=== PATIENT | female | born 1965 | race African-American/Black ===

== ENCOUNTER 2020-07-11 08:57 | Emergency (ER) | payer OTHER ==
--- OUTSIDE RECORDS SUMMARY | 2020-07-11 09:08 | XMS REPORT | Continuity of Care Document ---
:1965 Author Organization [facility] t Address [address] [place] [address] Care Team Providers Name Role Phone Bijal Lorenz Attending Clinician Nurse, Fausto Llamas I Attending Clinician Unavailable Problems This patient has no known problems. Allergies, Adverse Reactions, Alerts This patient has no known allergies or adverse reactions. Medications This patient has no known medications. Procedures This patient has no known procedures. Encounters Start End Encounter Admission Attending Care Care Encounter Source Date/Time Date/Time Type Type Clinicians Facility Department ID 2020-03-02 2020-03-02 Emergency Binta RUST [id number] 13:06:11 16:36:00 Anurag Appiah [place] [id number] [place] [id number] [place] [id number] 2020-03-02 2020-03-02 Telephone Nurse, [facility] [id number] 00:00:00 00:00:00 Fausto Pob I [facility] [id number] [place] [id number] [facility] [id number] [place] [address] Results This patient has no known results.
--- NOTE | 2020-07-11 09:54 | RAD REPORT ---
EXAM DESCRIPTION: CT - Head Brain Wo Cont - 07/11/2020 9:46 am CLINICAL HISTORY: HEADACHE COMPARISON: No comparisons TECHNIQUE: Axial 5 mm thick images of the head were obtained without IV contrast. All CT scans are performed using dose optimization technique as appropriate and may include automated exposure control or mA/KV adjustment according to patient size. FINDINGS: No intracranial hemorrhage, mass, edema or shift of mid-line structures. No acute infarcti on changes seen. No abnormal extra-axial fluid collections. Ventricles are normal. Physiologic basal ganglia and falx calcifications are present. Mastoid air cells and visualized portions of the paranasal sinuses are clear. No acute bony findings. IMPRESSION: Negative non-contrast CT head examination.
[2020-07-11 10:10] LABS: Protime INR 1.27
[2020-07-11 10:12] LABS: Absolute Lymphocytes (CBC) 1.9 K/uL (0.7-4.9); Basophils % 0.9 % (0-1.3); Hematocrit 39.1 % (36.0-45.0); Lymphocytes % 14.1 % (15.3-44.8); MPV 8.7 fL (7.6-11.3); RBC Red Blood Cell Count 4.16 M/uL (3.86-4.86)
[2020-07-11] MEDS ORDERED: METOCLOPRAMIDE 10 MG/2mL INJ ONE (10:20)
[2020-07-11] MEDS ORDERED: DIPHENHYDRAMINE 50 MG/ML VIAL ONE (10:21)
[2020-07-11] MEDS ORDERED: NA CHLORIDE 0.9% 1,000 ML ONE (10:21)
[2020-07-11] MEDS ORDERED: ACETAMINOPHEN 325 MG TABLET ONE (10:21)
[2020-07-11] MEDS ORDERED: dexAMETHasone 10 MG/ML VIAL ONE (10:21)
[2020-07-11 10:26] LABS: ALT/SGPT 19 U/L (12-78); AST/SGOT 11 U/L (15-37); Albumin 3.4 g/dL (3.4-5.0); Alkaline Phosphatase 103 U/L (45-117); BUN Blood Urea Nitrogen 8 mg/dL (7-18); Bicarbonate 27 mmol/L (21-32); Bilirubin Direct 0.3 mg/dL (0-0.2); Bilirubin Total 1.4 mg/dL (0.2-1.0); Glucose Level 219 mg/dL (74-106); NT PRO-BNP 30 pg/mL (<125); Potassium 3.9 mmol/L (3.5-5.1); Protein, Total 8.6 g/dL (6.4-8.2); Sodium Level 136 mmol/L (136-145); Troponin (Emerg Dept Use Only) < 0.02 ng/mL (0.0-0.045)
--- NOTE | 2020-07-11 10:32 | RAD REPORT ---
EXAM DESCRIPTION: RAD - Chest Single View - 07/11/2020 10:04 am CLINICAL HISTORY: CHEST PAIN COMPARISON: Two view chest April 2015 TECHNIQUE: AP portable chest image was obtained 07/11/2020 10:04 am . FINDINGS: Lung volumes are low. No focal lung parenchymal process. Heart and vasculature are normal. No measurable pleural effusion and no pneumothorax. No acute bony abnormality seen. No acute aortic findings suspected. IMPRESSION: No acute cardiopulmonary process. No significant change comparison.
[2020-07-11] MEDS ORDERED: KETOROLAC 30 MG/ML INJ ONE (11:20)
[2020-07-11 12:05] LABS: Urine Blood NEGATIVE (NEG); Urine Glucose TRACE (NEG); Urine Protein NEGATIVE (NEG); Urine Specific Gravity 1.015 (1.005-1.030)
--- NOTE | 2020-07-11 12:16 | ER ---
Nurse's Notes [facility] Name: Olga Norton Age: 55 yrs Sex: Female : 1965 Arrival Date: 07/11/2020 Time: 08:59 Bed 20 Private MD: Diagnosis: Migraine;Viral infection, unspecified Presentation: 07/11 09:11 Chief complaint: Patient states: chest pain that started Sat. with SOB and weakness, em denies N/V, cough or fever, also reports TRAVIS with chills that started on Sun. Coronavirus screen: Client denies travel out of the [place] in the last 14 days. chills, fatigue, headache, shortness of breath, Client presents with at least one sign or symptom that may indicate coronavirus-19. Standard/surgical mask placed on the client. Provider contacted for isolation considerations. Ebola Screen: Patient negative for fever greater than or equal to 101.5 degrees Fahrenheit, and additional compatible Ebola Virus Disease symptoms Patient denies exposure to infectious person. Patient denies travel to an Ebola-affected area in the 21 days before illness onset. No symptoms or risks identified at this time. Initial Sepsis Screen: Does the patient meet any 2 criteria? HR > 90 bpm. No. Patient's initial sepsis screen is negative. Does the patient have a suspected source of infection? No. Patient's initial sepsis screen is negative. Risk Assessment: Do you want to hurt yourself or someone else? Patient reports no desire to harm self or others. Onset of symptoms was July 07, 2020. 09:11 Method Of Arrival: Ambulatory em 09:11 Acuity: CHIDI 3 em Historical: - Allergies: 09:13 Bactrim; em - Home Meds: 09:13 None [Active]; em - PMHx: 09:13 Asthma; prediabetic; em - PSHx: 09:13 Cholecystectomy; em - Immunization history:: Adult Immunizations not up to date. - Social history:: Smoking status: Patient denies any tobacco usage or history of. Screenin:15 Abuse screen: Denies threats or abuse. Nutritional screening: No deficits noted. em Tuberculosis screening: No symptoms or risk factors identified. Fall Risk None identified. Assessment: 09:11 General: Appears in no apparent distress. uncomfortable, ill, Behavior is calm, em cooperative, appropriate for age, Reports chills for 2-3 days. Pain: Complains of pain in headache and chest Pain radiates to chin Pain began 2-3 days ago. Neuro: Level of Consciousness is awake, alert, obeys commands, Oriented to person, place, time, situation, Appropriate for age Reports headache weakness. Cardiovascular: Reports chest pain, shortness of breath, Capillary refill < 3 seconds Patient's skin is warm and dry. Respiratory: Airway is patent Respiratory effort is even, unlabored, Respiratory pattern is regular, symmetrical. GI: Patient currently denies nausea, vomiting. Derm: Skin is intact, is healthy with good turgor, Skin is pink, warm \T\ dry. Musculoskeletal: Capillary refill < 3 seconds, Range of motion: intact in all extremities. Vital Signs: 09:11 BP 129 / 71; Pulse 113; Resp 20; Temp 99.9(O); Pulse Ox 100% on R/A; Weight 81.65 kg; em Height 5 ft. 5 in. (165.10 cm); Pain 10/10; 10:00 BP 120 / 60; Pulse 103; Resp 18; Pulse Ox 99% on R/A; em 09:11 Body Mass Index 29.95 (81.65 kg, 165.10 cm) em ED Course: 08:59 Patient arrived in ED. ds1 09:08 Osbaldo Rivera PA is PHCP. jr8 09:08 Valente Sommers MD is Attending Physician. jr8 09:10 Elia Hendrickson, RN is Primary Nurse. em 09:13 Triage completed. em 09:13 Arm band placed on. em 09:15 Patient has correct armband on for positive identification. Placed in gown. Bed in low em position. Call light in reach. Side rails up X2. Adult w/ patient. vehicle monitor technician on. Pulse ox on. NIBP on. 09:15 Patient maintains SpO2 saturation greater than 95% on room air. em 09:46 CT Head Brain wo Cont In Process Unspecified. EDMS 09:57 Inserted saline lock: 20 gauge in right antecubital area, using aseptic technique. ss Blood collected. 10:04 XRAY Chest (1 view) In Process Unspecified. EDMS 12:26 No provider procedures requiring assistance completed. IV discontinued, intact, ss bleeding controlled, No redness/swelling at site. Pressure dressing applied. Administered Medications: 10:15 Drug: Tylenol 650 mg Route: PO; ss 12:27 Follow up: Response: No adverse reaction; Marked relief of symptoms ss 10:15 Drug: NS 0.9% 1000 ml Route: IV; Rate: 1000 ml; Site: right antecubital; ss 11:27 Follow up: IV Status: Completed infusion; IV Intake: 1000ml em 10:17 Drug: Benadryl 25 mg Route: IVP; Site: right antecubital; ss 12:27 Follow up: Response: No adverse reaction ss 10:20 Drug: Decadron - Dexamethasone 10 mg Route: IVP; Site: right antecubital; ss 12:27 Follow up: Response: No adverse reaction; Marked relief of symptoms ss 10:28 Drug: Reglan 10 mg Route: IVP; Site: right antecubital; ss 12:28 Follow up: Response: No adverse reaction ss 11:12 Drug: Ketorolac 30 mg Route: IVP; Site: right antecubital; em 11:24 Follow up: Response: No adverse reaction; Marked relief of symptoms; Pain is decreased em Intake: 11:27 IV: 1000ml; Total: 1000ml. em Outcome: 12:16 Discharge ordered by MD. pike 12:26 Discharged to home ambulatory. ss 12:26 Condition: good 12:26 Discharge instructions given to patient, family, Instructed on discharge instructions, follow up and referral plans. medication usage, Demonstrated understanding of instructions, follow-up care, medications, Prescriptions given X 2. 12:28 Patient left the ED. ss Addendum: 07/13/2020 14:32 Addendum: COVID-19 Result: Negative result given to RN to notify pt. Attempted to d m5 contact pt regarding negative COVID-19 swab results. Other: Attempted to contact patient twice to report result but there was no answer and the mailbox was full. Signatures: Dispatcher [facility] Cami Castro RN RN [email or web address] Elia Hendrickson RN RN em Sanford, Demi ds1 Hoa Albrecht RN RN ss Roszak, Josh, PA PA jr8
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
[2020-07-11 12:39] VITALS: TEMP 99.9
[2020-07-11 12:40] VITALS: BP 120/60; O2SAT 99
--- NOTE | 2020-07-12 07:07 | EKG ---
Test Date: 2020-07-11 Test Time: 09:25:25 Sports Marketer: [place] MEASUREMENT RESULTS: Intervals: Rate: 106 NM: 124 QRSD: 78 QT: 342 QTc: 454 [place]: P: 68 NM: 124 QRS: 40 T: 33 INTERPRETIVE STATEMENTS: Sinus tachycardia Otherwise normal ECG Compared to ECG 03/27/2011 05:27:03 Sinus bradycardia no longer present Left ventricular hypertrophy no longer present Electronically Signed On 07-12-20 07:04:02 CDT by Óscar Isbell
== END 2020-07-11 12:28 | disposition home or self-care (01) ==
LOC: ER 08:57
DX: B34.9 Viral infection, unspecified (principal); Z20.828 Contact with and (suspected) exposure to other viral communicable diseases; J45.909 Unspecified asthma, uncomplicated; Z88.1 Allergy status to other antibiotic agents
CPT/HCPCS: 96361; 93005; 85025; 80048; 36415; 83735; 85610; 80076; 81003; 84484; 83880; 87804 ×2; 70450; 71045; 96375; 96374; 99285; U0002; J2765; J1200; J1100; J7030

== ENCOUNTER 2024-06-13 13:53 | Emergency (ER) | payer OTHER ==
--- OUTSIDE RECORDS SUMMARY | 2024-06-13 13:57 | XMS REPORT | Clinical Summary ---
Author Name Unknown Organization [facility] Address [address] [place] [address] Care Team Providers Care Statistical Modeler Name Role Phone Tulio Conrad MD Unavailable [phone] Alfonso Redding APRN Primary Care Provider + [phone] Allergies Active Allergy Reactions Criticality Noted Date Comments Sulfamethoxazole-Trim ethoprim High 04/10/2023 Per patient, it made her really sick Tree Nuts Shortness Of Breath High 04/29/2018 Medications Medication Sig Dispensed Refills Start Date End Date Status Farxiga 10 mg tab Take 10 mg by mouth daily. Active atorvastatin (LIPITOR) 40 mg tablet Take 1 tablet (40 mg) by mouth at bedtime. 04/07/2023 Active metFORMIN (GLUCOPHAGE-XR) 500 mg 24 hr tablet Take 1 tablet (500 mg) by mouth 2 (two) times a day with meals. 04/07/2023 Active montelukast (SINGULAIR) 10 mg tablet Take 1 tablet (10 mg) by mouth as needed. Active pantoprazole (PROTONIX) 40 mg EC tablet Take 1 tablet (40 mg) by mouth daily as needed. 01/02/2023 Active OneTouch Verio test strips strp 1 strip twice daily. 12/16/2022 Act pramod albuterol (VENTOLIN HFA,PROAIR HFA) 90 mcg/puff inhaler Inhale 2 puffs by mouth as needed. 07/08/2022 Active albuterol (ACCUNEB) 0.63 mg/3 mL nebulizer solution Inhale 3 mL (0.63 mg) by nebulization 3 (three) times a day as needed. 08/04/2022 Active Active Problems No known active problems Surgical History Surgery Date Site/Laterality Comments CHOLECYSTECTOMY I dont remember. Possibly 2004 SECTION, CLASSIC 07/27/1990 Medical History Medical History Date Comments Hyperlipidemia Migraine I have them occa sionally Asthma 20 years ago Was told I have reactive airways disease, treating under asthma. Gastric reflux I was recently given pantoprazole 40mg in November for hoarseness. I am no longer taking. Type 2 diabetes mellitus 10 years ago Social History Tobacco Use Types Packs/Day Years Used Date Smoking Tobacco: Never Smokeless Tobacco: Never Tobacco Cessation:Counseling Given: Not Answered Alcohol Use Standard Drinks/Week Comments Never 0 (1 standard drink = 0.6 oz pur e alcohol) Sex and Gender Information Value Date Recorded Sex Assigned at Not on file Gender Identity Not on file Sexual Orientation Not on file Job Start Date Occupation Industry Not on file Not on file Not on file Obstetrics History Para Term AB IAB SAB Ectopic Multiple Livin g Live Births 3 1 1 Date Outcome GA Total Labor Labor/2nd/3rd Weight Sex Type Anes PTL Cleopatra A1 A5 Name Clin Para Comments Menarche: 11 Parity: 25 OBC: Used for approximately 10 years Hormonal Therapy: Used IUD for approximately 5 years Last Pap: 04/02/2023 (OS) Abnormal Pap: Never Last Sonali: 03/26/2023 (OS) Breast Bx: Never Last Colon: Approximately 15 years ago (OS) - Normal Plan of Treatment Health Maintenance Due Date Last Done Comments COVID-19 Vaccine (2022-2 4 season) 2024 Influenza Vaccine (#1) 2024 Pneumococcal Vaccine: Pediat rics (0 to 5 Years) and At-Risk Patients (6 to 64 Years) Aged Out No longer eligi ble based on patient's age to complete this topic Care Teams Statistical Modeler Relationship Specialty Start Date End Date Tulio Conrad MD [address] [place] [id number] [email or web address] PCP - External Primary Care Provider Internal Medicine 04/03/23 Alfonso Redding APRN [address] [place] [id number] [email or web address] PCP - General Cancer Prevention 04/06/23
[2024-06-13] MEDS ORDERED: ACETAMINOPHEN 500 MG TAB ONE (14:25)
[2024-06-13] MEDS ORDERED: MORPHINE 2 MG/ML SYR ONE (14:25)
[2024-06-13] MEDS ORDERED: NA CHLORIDE 0.9% 1,000 ML ONE (14:26)
[2024-06-13 15:08] LABS: Absolute Lymphocytes (CBC) 1.4 K/uL (0.7-4.9); Absolute Monocytes 1.1 K/uL (0.1-1.3); Absolute Neutrophil 7.1 K/uL (1.8-8.0); Basophils % 0.5 % (0-1.3); Eosinophils % 0.1 % (0-4.4); Hematocrit 33.3 % (36.0-45.0); Hemoglobin 11.3 g/dL (12.0-15.0); Lymphocytes % 14.8 % (15.3-44.8); MCH 32.7 pg (27.0-35.0); MCV 96.1 fL (80-100); MPV 7.8 fL (7.6-11.3); Monocytes % 11.7 % (3.3-12.3); Neutrophils % 72.9 % (41.7-73.7); Platelets 348 thou/uL (152-406); RBC Red Blood Cell Count 3.46 M/uL (3.86-4.86)
[2024-06-13 15:17] LABS: PT Prothrombin Time 13.7 SECONDS (9.4-12.5); Protime INR 1.23
[2024-06-13 15:20] LABS: Albumin 3.3 g/dL (3.4-5.0); Albumin/Globulin Ratio 0.7 (1.1-1.8); Anion Gap 9.4 mEq/L (5.0-15.0); Globulin 4.6 g/dL (2.3-3.5); Potassium 3.4 mEq/L (3.5-5.1); Protein, Total 7.9 g/dL (6.4-8.2)
--- NOTE | 2024-06-13 15:42 | RAD REPORT ---
EXAM: CT brain without contrast HISTORY: [facility] MAIN headache, fever Bed Name: 4 COMPARISON: 07/11/[address] TECHNIQUE: Multiple contiguous axial images were obtained and a CT of the brain without contrast. Sag ittal and coronal reformats were performed. FINDINGS: No evidence of hydrocephalus, intracranial hemorrhage, or extra-axial fluid collection. The brain is normal in morphology. Mild bilateral basal ganglia mineralization. The calvarium is intact. The visualized paranasal sinuses and mastoid air cells are essentially clear . IMPRESSION: No evidence of acute intracranial abnormality.
--- NOTE | 2024-06-13 15:53 | RAD REPORT ---
EXAMINATION: ONE VIEW CHEST XR CLINICAL INDICATION: Female, 58 years old. [facility] MAIN FEVER Bed Name: 4 TECHNIQUE: Frontal chest projection is submitted. Examination is limited by patient positioning and t echnique. COMPARISON: 12/03/2022 and 07/11/2020 chest radiographs FINDINGS: Somewhat peripheral right midlung airspace opacity. Faint left basilar opacification which may be art ifactual, related to superimposition of soft tissues. No pneumothorax or sizable effusion. The heart is normal in size. IMPRESSION: Right midlung confluent airspace opacity, concerning for pneumonia.
[2024-06-13] MEDS ORDERED: LEVALBUTEROL 1.25 MG/3 ML NEB ONE (16:13)
[2024-06-13] MEDS ORDERED: METHYLPREDNISOLONE 125 MG INJ ONE (16:13)
[2024-06-13] MEDS ORDERED: levoFLOXacin 750 MG TAB ONE (16:13)
--- NOTE | 2024-06-13 17:10 | ER ---
Nurse's Notes [facility] Name: Olga Norton Age: 58 yrs Sex: Female : 1965 Arrival Date: 06/13/2024 Time: 13:53 Bed 4 Private MD: Diagnosis: Pneumonia, unspecified organism;Unspecified asthma with (acute) exacerbation Presentation: 06/13 14:14 Chief complaint: Patient states: Headache, fever, neck pain, increased fatigue, cm10 unsteady gait onset Thursday. Coronavirus screen: Client denies travel out of the [place] in the last 14 days. Ebola Screen: Patient denies travel to an Ebola-affected area in the 21 days before illness onset. No symptoms or risks identified at this time. 14:14 Method Of Arrival: Ambulatory cm10 14:19 Initial Sepsis Screen: Does the patient meet any 2 criteria? Temp <36.0*C (96.8*F)) or cm10 > 38.3*C (100.9*F). HR > 90 bpm. Does the patient have a suspected source of infection? No. Patient's initial sepsis screen is negative. Risk Assessment: Do you want to hurt yourself or someone else? Patient reports no desire to harm self or others. Onset of symptoms was June 10, 2024. 14:19 Acuity: CHIDI 3 cm10 Triage Assessment: 14:16 General: Appears in no apparent distress. uncomfortable, Behavior is calm, cooperative. cm10 Neuro: No deficits noted. Level of Consciousness is awake, alert, obeys commands, Oriented to person, place, time, situation, Appropriate for age. Respiratory: No deficits noted. Airway is patent Respiratory effort is even, unlabored, Respiratory pattern is regular, symmetrical. 18:25 Headache History: The patient has had previous headaches and this one is similar to bp previous episodes. Pain: Pain currently is 0 out of 10 on a pain scale. Pain began gradually, Also complains of no other associated symptoms. Historical: - Allergies: 14:16 Bactrim; cm10 - PMHx: 14:16 Prediabetic; Asthma; cm10 - Immunization history:: Adult Immunizations up to date. - Infectious Disease History:: Denies. - Social history:: Smoking status: unknown. - Family history:: not pertinent. - Hospitalizations: : No recent hospitalization is reported. Screenin:14 [facility] ED Fall Risk Assessment (Adult) History of falling in the last 3 months, ph including since admission No falls in past 3 months (0 pts) Confusion or Disorientation No (0 pts) Intoxicated or Sedated No (0 pts) Impaired Gait No (0 pts) Mobility Assist Device Used No (0 pt) Altered Elimination No (0 pt) Score/Fall Risk Level 0 - 2 = Low Risk Oriented to surroundings, Maintained a safe environment, Hourly rounding (assess needs \T\ fall precautionary measures) done. Abuse screen: Denies threats or abuse. Denies injuries from another. Nutritional screening: No deficits noted. Tuberculosis screening: No symptoms or risk factors identified. Assessment: 14:20 General: CODE SEPSIS CALLED AT THIS TIME.. cm10 15:14 Reassessment: Patient appears in no apparent distress at this time. Patient and/or ph family updated on plan of care and expected duration. Pain level reassessed. 17:02 Reassessment: Patient appears in no apparent distress at this time. Patient is alert, bp oriented x 3, equal unlabored respirations, skin warm/dry/pink. 17:15 Reassessment: DC ON HOLD FOR FAMILY TRANSPORT. bp 18:24 Reassessment: FAMILY AT B/S FOR DC. bp Vital Signs: 14:14 BP 141 / 63; Pulse 112; Resp 19; Temp 101.1(O); Pulse Ox 96% on R/A; cm10 14:19 Weight 68.04 kg; Height 5 ft. 5 in. ; Pain 10/10; cm10 15:14 BP 128 / 62; Pulse 99; Resp 18; Pulse Ox 99% on R/A; ph 17:02 BP 129 / 61; Pulse 96; Resp 16; Pulse Ox 95% ; bp 18:24 BP 134 / 74; Pulse 94; Resp 16; Pulse Ox 95% ; bp 14:19 Body Mass Index 24.96 (68.04 kg, 165.1 cm) cm10 14:19 Pain Scale: Adult cm10 ED Course: 14:00 Patient arrived in ED. ra3 14:06 Jacob Landis MD is Attending Physician. rn 14:16 Brian Armando, AMARIS is Primary Nurse. bp 14:16 Arm band placed on Patient placed in an exam room, on a stretcher. cm10 14:20 Triage completed. cm10 14:29 CT Head Brain wo Cont In Process Unspecified. EDMS 14:49 XRAY Chest (1 view) In Process Unspecified. EDMS 14:50 Initial lab(s) drawn, by me, sent to lab. First set of blood cultures drawn by me, bp Second set of blood cultures drawn by me. 14:53 Inserted saline lock: 20 gauge in right antecubital area, using aseptic technique. bp Blood collected. Flushed with 10 mL NS. 15:15 Patient has correct armband on for positive identification. Bed in low position. Call ph light in reach. Pulse ox on. NIBP on. 18:24 Provided Education on: N/A. bp 18:24 No provider procedures requiring assistance completed. IV discontinued, intact, bp bleeding controlled, No redness/swelling at site. Pressure dressing applied. Administered Medications: 14:50 Drug: Acetaminophen PO 1000 mg PO once Route: PO; bp 18:26 Follow up: Response: No adverse reaction bp 14:50 Drug: NS 0.9% IV 1000 ml IV at 1000 ml once Route: IV; Rate: 1000 ml; Site: right bp antecubital; 18:26 Follow up: IV Status: Completed infusion; IV Intake: 1000ml bp 14:50 Drug: morphine IVP or IV 2 mg IVP once over 4 mins Route: IVP; Infused Over: 4 mins; bp Site: right antecubital; 18:26 Follow up: Response: No adverse reaction bp 16:31 Drug: LevOfloxacin PO 750 mg PO once Route: PO; ph 18:26 Follow up: Response: No adverse reaction bp 16:31 Drug: MethylPrednisoLONE IVP 125 mg IVP once Route: IVP; Site: right antecubital; ph 18:26 Follow up: Response: No adverse reaction bp 16:31 Drug: Levalbuterol Inhalation 1.25 mg Inhalation once Route: Inhalation; ph Medication: 15:15 VIS not applicable for this client. ph Intake: 18:26 IV: 1000ml; Total: 1000ml. bp Outcome: 17:10 Discharge ordered by . rn 18:24 Discharged to home via wheelchair, with family, bp 18:24 Condition: stable 18:24 Discharge instructions given to patient, Instructed on discharge instructions, follow up and referral plans. medication usage, Demonstrated understanding of instructions, follow-up care, medications, Prescriptions given X 2, 18:27 Patient left the ED. bp Signatures: Dispatcher [employer] EDMS Jacob Landis MD MD rn Hall, Patricia, RN RN Brian Verde RN RN Celeste Canales RN RN [facility] Olga Crane [facility]
--- NOTE | 2024-06-13 17:10 | EDPHYS ---
Physician Documentation [facility] Name: Olga Norton Age: 58 yrs Sex: Female : 1965 Arrival Date: 06/13/2024 Time: 13:53 Bed 4 Private MD: ED Physician Jacob Landis HPI: 06/13 15:15 This 58 yrs old Black Female presents to ER via Ambulatory with complaints of Headache, rn Fever. 15:15 The patient reports fever, that was measured at 102 degrees Fahrenheit. Onset: The rn symptoms/episode began/occurred 3 day(s) ago. Modifying factors: there are no obvious modifying factors. Associated signs and symptoms: Pertinent positives: headache, Pertinent negatives: abdominal pain, altered mental status, cough, diarrhea, hemoptysis, skin rash, shortness of breath, sore throat, swelling, vomiting. Severity of symptoms: At their worst the symptoms were moderate in the emergency department the symptoms are unchanged. The patient has not experienced similar symptoms in the past. Patient reports fever to 102, myalgias, headache, generalized weakness, slow thought process and slow ambulation for 3 days. Denies head injury. No previous stroke. No trauma. No focal neurological deficit. No vision changes. No speech changes. No known sick contacts. Took 2 COVID tests at [facility] as well as flu test that were all negative. Called her insurance card and they told her to come to the emergency room for evaluation.. Historical: - Allergies: 14:16 Bactrim; cm10 - PMHx: 14:16 Prediabetic; Asthma; cm10 - Immunization history:: Adult Immunizations up to date. - Infectious Disease History:: Denies. - Social history:: Smoking status: unknown. - Family history:: not pertinent. - Hospitalizations: : No recent hospitalization is reported. ROS: 15:15 Constitutional: Positive for fever and chills ENT: Negative for injury, pain, and rn plasma center, Neck: Positive for mild neck pain, no swelling Cardiovascular: Negative for chest pain, palpitations, and edema, Respiratory: Negative for shortness of breath, cough, wheezing, and pleuritic chest pain, Abdomen/GI: Negative for abdominal pain, nausea, vomiting, diarrhea, and constipation, Back: Negative for injury and pain, : Negative for injury, bleeding, discharge, and swelling, MS/Extremity: Negative for injury and deformity, Skin: Negative for injury, rash, and discoloration, Neuro: Positive for headache and generalized weakness, negative for seizure Exam: 15:15 Constitutional: This is a well developed, well nourished patient who is awake, alert, rn and in no acute distress. Using cell phone in lobby when I called her, ambulates to triage without assistance, slow but normal gait otherwise. Head/Face: Normocephalic, atraumatic. Neck: No meningismus or nuchal rigidity Cardiovascular: Regular rate and rhythm. No pulse deficits. Respiratory: No increased work of breathing, no retractions or nasal flaring. Skin: Warm, dry no rash. MS/ Extremity: Pulses equal, no cyanosis. Neurovascular intact. Full, normal range of motion. Equal circumference. Neuro: Awake and alert, GCS 15, oriented to person, place, time, and situation. Motor strength 5/5 in all extremities. Slow gait but able to ambulate to exam room without assistance. No signs of ataxia. 17:21 ECG was reviewed by the Attending Physician. rn Vital Signs: 14:14 BP 141 / 63; Pulse 112; Resp 19; Temp 101.1(O); Pulse Ox 96% on R/A; cm10 14:19 Weight 68.04 kg; Height 5 ft. 5 in. ; Pain 10/10; cm10 15:14 BP 128 / 62; Pulse 99; Resp 18; Pulse Ox 99% on R/A; ph 17:02 BP 129 / 61; Pulse 96; Resp 16; Pulse Ox 95% ; bp 18:24 BP 134 / 74; Pulse 94; Resp 16; Pulse Ox 95% ; bp 14:19 Body Mass Index 24.96 (68.04 kg, 165.1 cm) cm10 14:19 Pain Scale: Adult cm10 MDM: 14:06 Patient medically screened. rn 17:08 Differential diagnosis: viral Infection, bacterial infection, URI, bronchitis, rn pneumonia. Data reviewed: vital signs, nurses notes, lab test result(s), radiologic studies, plain films, and as a result, I will discharge patient. 17:08 Counseling: I had a detailed discussion with the patient and/or guardian regarding the rn historical points, exam findings, and any diagnostic results supporting the discharge/admit diagnosis, lab results, radiology results, the need for outpatient follow up, to return to the emergency department if symptoms worsen or persist or if there are any questions or concerns that arise at home. Special discussion: I discussed with the patient/guardian in detail that at this point there is no indication for admission to the hospital. It is understood, however, that if the symptoms persist or worsen the patient needs to return immediately for re-evaluation. ED course: Patient improved, chest x-ray shows lobar pneumonia, normal WBC and lactic acid. No oxygen requirement. Will discharge home with antibiotics and treat asthma exacerbation. Return precautions given and understood.. 06/13 14:20 Order name: Blood Culture Adult (2) rn 06/13 14:20 Order name: CBC with Diff; Complete Time: 15:15 06/13 14:20 Order name: CMP; Complete Time: 15:36 06/13 14:20 Order name: Lactate w/ 2H reflex if indic.; Complete Time: 15:36 06/13 14:20 Order name: Protime (+inr); Complete Time: 15:36 06/13 14:20 Order name: Ptt, Activated; Complete Time: 15:36 06/13 14:20 Order name: CT Head Brain wo Cont; Complete Time: 15:46 06/13 14:34 Order name: XRAY Chest (1 view); Complete Time: 15:58 06/13 14:20 Order name: Accucheck; Complete Time: 15:00 06/13 14:20 Order name: Cardiac monitoring; Complete Time: 14:27 06/13 14:20 Order name: EKG - Nurse/Tech; Complete Time: 16:39 06/13 14:20 Order name: IV Saline Lock - Large Bore; Complete Time: 15:00 06/13 14:20 Order name: Labs collected and sent; Complete Time: 15:00 06/13 14:20 Order name: O2 Per Protocol; Complete Time: 14:27 06/13 14:20 Order name: O2 Sat Monitoring; Complete Time: 14:06/13 14:20 Order name: Vital Signs; Complete Time: 14: rn EC:21 Rate is 90 beats/min. Rhythm is regular. QRS [place] is Normal. NC interval is normal. QRS rn interval is normal. QT interval is normal. No Q waves. T waves are Normal. No ST changes noted. Clinical impression: NSR w/ Non-specific ST/T Changes. Interpreted by me. Reviewed by me. Administered Medications: 14:50 Drug: Acetaminophen PO 1000 mg PO once Route: PO; bp 18:26 Follow up: Response: No adverse reaction bp 14:50 Drug: NS 0.9% IV 1000 ml IV at 1000 ml once Route: IV; Rate: 1000 ml; Site: right bp antecubital; 18:26 Follow up: IV Status: Completed infusion; IV Intake: 1000ml bp 14:50 Drug: morphine IVP or IV 2 mg IVP once over 4 mins Route: IVP; Infused Over: 4 mins; bp Site: right antecubital; 18:26 Follow up: Response: No adverse reaction bp 16:31 Drug: LevOfloxacin PO 750 mg PO once Route: PO; ph 18:26 Follow up: Response: No adverse reaction bp 16:31 Drug: MethylPrednisoLONE IVP 125 mg IVP once Route: IVP; Site: right antecubital; ph 18:26 Follow up: Response: No adverse reaction bp 16:31 Drug: Levalbuterol Inhalation 1.25 mg Inhalation once Route: Inhalation; ph Disposition Summary: 06/13/24 17:10 Discharge Ordered Notes: Location: Home rn Problem: new rn Symptoms: have improved rn Condition: Stable rn Diagnosis - Pneumonia, unspecified organism rn - Unspecified asthma with (acute) exacerbation rn Followup: rn - With: Private Physician - When: As needed - Reason: Recheck today's complaints, Re-evaluation by your physician Discharge Instructions: - Discharge Summary Sheet rn - Asthma, Adult rn - Community-Acquired Pneumonia, Adult rn Forms: - Medication Reconciliation Form rn - 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 - Prescription Opioid Use rn - Patient Portal Instructions rn - Leadership Thank You Letter rn - Work release form [id number] Prescriptions: - Prednisone 20 mg Oral Tablet - take 3 tablets ORAL route once daily for 5 days; 15 tablet; Refills: 0, Product rn Selection Permitted - levofloxacin 750 mg Oral tablet - take 1 tablet ORAL route once daily for 7 days; 7 tablet; Refills: 0, Product rn Selection Permitted Signatures: Dispatcher [employer] EDJacob Reza MD MD rn Hall, Patricia RN Brian Ryan ph RN RN Celeste Canales RN RN cm10 Corrections: (The following items were deleted from the chart) 14:20 14:20 Head Brain Wo Cont+CT.RAD.BRZ ordered. EDMS EDMS 14:20 14:20 BLOOD CULTURE*+BA.LAB.BRZ ordered. EDMS EDMS 14:20 14:20 CBC+H.LAB.BRZ ordered. EDMS EDMS 14:20 14:20 COMPREHENSIVE METABOLIC PANEL+C.LAB.BRZ ordered. EDMS EDMS 14:20 14:20 LACTATE+C.LAB.BRZ ordered. EDMS EDMS 14:20 14:20 PROTIME (+INR)+COAG.LAB.BRZ ordered. EDMS EDMS 14:20 14:20 PTT, ACTIVATED+COAG.LAB.BRZ ordered. EDMS EDMS 14:20 14:20 Urinalysis+U.LAB.BRZ ordered. EDMS EDMS
[2024-06-13 18:50] VITALS: TEMP 101.1
[2024-06-13 18:58] VITALS: O2SAT 95
[2024-06-13 18:59] VITALS: BP 134/74
--- NOTE | 2024-06-14 16:59 | EKG ---
Test Date: 2024-06-13 Test Time: 16:21:22 Retarder Operator: PH MEASUREMENT RESULTS: Intervals: Rate: 90 ID: [id number] QRSD: 80 QT: 356 QTc: 435 [place]: P: 68 ID: [id number] QRS: 53 T: 68 INTERPRETIVE STATEMENTS: Normal sinus rhythm Nonspecific T wave abnormality Abnormal ECG Compared to ECG 07/11/2020 09:25:25 T-wave abnormality now present Sinus tachycardia no longer present Electronically Signed On 06-14-24 16:55:03 CDT by Amado Cardoza
== END 2024-06-13 18:27 | disposition home or self-care (01) ==
LOC: ER 13:53
DX: J18.9 Pneumonia, unspecified organism (principal); J45.901 Unspecified asthma with (acute) exacerbation
CPT/HCPCS: 96361; 93005; 87040 ×2; 85025; 36415; 85610; 83605; 85730; 80053; 70450; 71045; 96375; 96374; 99285; J7614; J2270; J2919; J7030